=== PATIENT | female | born 1985 | race Caucasian/White ===

== ENCOUNTER 2016-10-29 08:51 | Emergency (ER) | payer MEDICAID ==
[~2016-10-29] VITALS: Ht 157.5 cm; Wt 145.0 kg
[~2016-10-29 08:51] MED LIST: AUGM875T PO; CIPR500T4 PO; CORTIS10A RIGHT EAR; ZITH250T PO
[2016-10-29 08:52] VITALS: BP 164/120; PULSE 108; RESP 21; TEMP 98; O2SAT 95
--- NOTE | 2016-10-29 10:12 | PD ---
HPI Chief Complaint: Respiratory Distress Time Seen by Provider: 09:41 Travel History International Travel<30 days: No Contact w/Intl Traveler<30days: No Traveled to known affect area: No History of Present Illness HPI This is a 31-year-old female who has a history of asthma who presents to the emergency department with 2 days of productive cough with green sputum, constant , severe, associated with difficulty breathing and chest tightness that goes around her ribs and is worse when she coughs. She also says she had several episodes of posttussive vomiting last night with a little bit of blood in it. She doesn't think she's had a fever. PFSH Past Medical History Asthma: Yes Diminished Hearing: No Respiratory: Yes ?: Not : 1 Para: 0 Miscarriage: 0 : 1 Dilation and Curettage (D&C): Yes Past Surgical History Cholecystectomy: Yes Social History Alcohol Use: No Tobacco Use: No Substance Use: No Allergies-Medications (Allergen,Severity, Reaction): Coded Allergies: Contrast Media (Verified Allergy, Severe, 10/29/16) Reported Meds & Prescriptions Reported Meds & Active Scripts Active No Active Prescriptions or Reported Medications Review of Systems Except as stated in HPI: all other systems reviewed are Neg Physical Exam Narrative GENERAL: Tearful, in no respiratory distress SKIN: Warm and dry. HEAD: Atraumatic. Normocephalic. EYES: Pupils equal and round. No injection or drainage. ENT: Moist mucous membranes NECK: Trachea midline. CARDIOVASCULAR: Tachycardic No murmur appreciated. RESPIRATORY: Diffuse wheezing, speaking full sentences, no accessory muscle use GASTROINTESTINAL: Abdomen soft, non-tender, nondistended. MUSCULOSKELETAL: No obvious deformities. NEUROLOGICAL: Awake and alert. No obvious cranial nerve deficits. Moving all extremities. PSYCHIATRIC: Tearful with depressed mood Data Data Last Documented VS Vital Signs Date Time Temp Pulse Resp B/P Pulse Ox O2 Delivery O2 Flow Rate FiO2 10/29/16 08:52 98.0 108 21 164/120 95 Orders Methylprednisolone So Succ Inj (Solumedr (10/29/16 10:15) Ecg Monitoring (10/29/16 10:07) Oximetry (10/29/16 10:07) Oxygen Administration (10/29/16 10:07) Albuterol-Ipratropium Neb (Duoneb Neb) (10/29/16 10:15) Sodium Chloride 0.9% Flush (Ns Flush) (10/29/16 10:15) Acetamin-Hydrocod 325-5 Mg ([place] 5-325 (10/29/16 10:15) [facility] Medical Decision Making Medical Screen Exam Complete: Yes Emergency Medical Condition: Yes Interpretation(s) Tachycardic with a normal oxygen saturation Differential Diagnosis Acute asthma exacerbation, pneumonia, bronchitis Narrative Course This is a 31-year-old female who presents to the emergency department with increasing shortness of breath. She has a history of asthma. She was given serial DuoNeb's and IM Solu-Medrol. She feels much better. Chest x-ray was deferred given she's not hypoxic and I'm going to treat her with antibiotics anyway given her purulent sputum production. Patient was discharged home with prednisone, bronchodilators and antibiotics. Diagnosis Primary Impression: Bronchitis, asthmatic Qualified Code: J45.41 - Bronchitis, asthmatic, moderate persistent, with acute exacerbation Patient Instructions: General Instructions Additional Instructions: If you develop severe shortness of breath, chest pain, or difficulty breathing return to the emergency department. Use albuterol every 4 hours for the next 2 days. Then use as needed for wheezing. Complete your course of steroids. Complete your course of antibiotics. Follow up with your primary care physician in 2-3 days if your symptoms have not improved. Med/Other Pt SpecificInfo: Prescription(s) given Scripts Albuterol 8.5 GM Inh (Proair Hfa 8.5 GM Inh)90 Mcg/Act Aer2 Puff INH Q4-6H PRN ( SHORTNESS OF BREATH) #1 INHALER Ref 0 108 mcg/actuation Prov:Eden Mercado MD 10/29/16 Albuterol Neb 2.5 Mg/0.5 Ml Neb2.5 Mg NEB QID NEB #120 NEBULE Ref 0 Note: The Albuterol Sulfate Inhalation Solution is concentrated and must be diluted. Read complete instructions carefully before using. Prov:Eden Mercado MD 10/29/16 Azithromycin 250 Mg Ait699 Mg PO DIRECTED #6 TAB Take 2 tabs (500 mg) on day 1 then 1 tab daily x 4 days. Prov:Eden Mercado MD 10/29/16 Prednisone 20 Mg Tab40 Mg PO DAILY 4 Days Prov:Eden Mercado MD 10/29/16 Disposition: 01 DISCHARGE HOME Condition: Stable Eden Mercado MD Oct 29, 2016 10:12
[2016-10-29] MEDS ORDERED: methylPREDNISolone SOD SUCC 125 MG/2 ML VIAL IM ONE (10:15)
[2016-10-29] MEDS ORDERED: ACETAMINOPHEN/HYDROcodone 325 MG/5 MG TAB PO ONE (10:15)
[2016-10-29] MEDS ORDERED: SODIUM CHLORIDE 0.9% FLUSH 10 ML FLUSH IVF PRN (10:15)
[2016-10-29] MEDS: RESP: ALBUTEROL 2.5 MG/IPRATROPIUM 0.5 MG NEB (SCH) INH ×2 (10:43→10:44)
[2016-10-29] MEDS ORDERED: ALBU.5I NEB (11:03)
[2016-10-29] MEDS ORDERED: PRED20 PO (11:03)
[2016-10-29] MEDS ORDERED: ALBUAER3 INH (11:03)
[2016-10-29] MEDS ORDERED: AZIT250T3 PO (11:03)
== END 2016-10-29 11:41 | disposition home or self-care (01) ==
LOC: NEPB 08:51
DX: J45.41 Moderate persistent asthma with (acute) exacerbation (principal)
CPT/HCPCS: 94664; 96372; 99283; J2930

== ENCOUNTER 2017-11-19 07:42 | Emergency (ER) | payer SELFPAY ==
[~2017-11-19] VITALS: Ht 162.6 cm; Wt 150.0 kg
[~2017-11-19 07:42] MED LIST changes: +ALBU.5I NEB; +ALBUAER3 INH; -AUGM875T PO; +AZIT250T3 PO; -CIPR500T4 PO; -CORTIS10A RIGHT EAR; +PRED20 PO; -ZITH250T PO
[2017-11-19 07:45] VITALS: BP 131/102; PULSE 102; RESP 22; TEMP 99.2; O2SAT 98
[2017-11-19] MEDS ORDERED: RESP: ALBUTEROL 2.5 MG/IPRATROPIUM 0.5 MG NEB (SCH) INH ONE (08:15)
[2017-11-19] MEDS ORDERED: SODIUM CHLORIDE 0.9% FLUSH 10 ML FLUSH IVF PRN (08:15)
[2017-11-19] MEDS ORDERED: KETOROLAC TROMETHAMINE 30 MG/ML (IVP) VIAL IV PUSH ONE (08:15)
[2017-11-19 08:19] LABS: AUTOMATED NEUTROPHIL # 5.3 TH/MM3 (1.8-7.7); BASOPHIL # 0.1 TH/MM3 (0-0.2); BASOPHIL % 0.8 % (0.0-2.0); EOSINOPHIL # 0.1 TH/MM3 (0-0.4); EOSINOPHIL % 1.2 % (0.0-4.0); HEMATOCRIT 39.1 % (35.0-46.0); HEMOGLOBIN 13.3 GM/DL (11.6-15.3); LYMPH % 33.9 % (9.0-44.0); LYMPHOCYTE # 3.2 TH/MM3 (1.0-4.8); MEAN CELL VOLUME 85.4 FL (80.0-100.0); MEAN CORPUSCULAR HEMOGLOBIN 29.1 PG (27.0-34.0); MEAN CORPUSCULAR HGB CONC 34.1 % (32.0-36.0); MEAN PLATELET VOLUME 8.2 FL (7.0-11.0); MONO % 7.4 % (0.0-8.0); MONOCYTE # 0.7 TH/MM3 (0-0.9); NEUT % 56.7 % (16.0-70.0); PLATELET COUNT 293 TH/MM3 (150-450); RED BLOOD COUNT 4.58 MIL/MM3 (4.00-5.30); RED CELL DISTRIBUTION WIDTH 13.6 % (11.6-17.2); WHITE BLOOD COUNT 9.4 TH/MM3 (4.0-11.0)
--- NOTE | 2017-11-19 08:22 | PD ---
HPI Chief Complaint: Cold / Flu Symptoms Time Seen by Provider: 08:01 Travel History International Travel<30 days: No Contact w/Intl Traveler<30days: No Traveled to known affect area: No History of Present Illness HPI This is a 32-year-old female with history of bronchitis/COPD, presents here with complaint of cough with productive green phlegm. Patient also reports subjective fevers. Patient reports pain in her left upper ribs. She reports the pain is sharp and intermittent. She reports it is present only when she moves from side to side or takes a deep breath in or out. She denies any constant pressure. She denies any radiation of the pain. The patient reports that her at home is starting to get similar URI symptoms. She reports this is been present for 4 days. The patient denies any calf swelling. She denies any long car rides or plane rides. She denies any control or estrogen use. She denies any previous trauma or previous blood clots to her legs. PFSH Past Medical History Asthma: Yes Diminished Hearing: No Respiratory: Yes ?: Not LMP: OCTOBER 2017 : 4 Para: 3 Miscarriage: 1 : 0 Dilation and Curettage (D&C): Yes Past Surgical History Cholecystectomy: Yes Social History Alcohol Use: No Tobacco Use: No Substance Use: No Allergies-Medications (Allergen,Severity, Reaction): Coded Allergies: diatrizoate meglumine (Unverified Allergy, Severe, 03/23/17) gadobenic acid (Unverified Allergy, Severe, 03/23/17) gadodiamide (Unverified Allergy, Severe, 03/23/17) gadoteridol (Unverified Allergy, Severe, 03/23/17) iodixanol (Unverified Allergy, Severe, 03/23/17) iohexol (Unverified Allergy, Severe, 03/23/17) Reported Meds & Prescriptions Reported Meds & Active Scripts Active Zithromax Z-Jerman (Azithromycin) 250 Mg Dspk 250 Mg PO DIRECTED 500 MG (2 tabs) day 1, then 1 tab days 2-5. Guaiatussin AC Liq (Guaifenesin-Codeine Liq) 100-10 Mg/5 Ml Syrp 10 Ml PO Q6H PRN 3 Days Review of Systems Except as stated in HPI: all other systems reviewed are Neg General / Constitutional: Positive: Fever, No: Chills HENT: No: Headaches, Lightheadedness, Neck Pain Cardiovascular: Positive: Chest Pain or Discomfort (Left upper lateral chest wall), No: Palpitations Respiratory: Positive: Cough, Shortness of Breath, Wheezing Gastrointestinal: Positive: Nausea, No: Vomiting, Abdominal Pain Genitourinary: No: Frequency, Dysuria Musculoskeletal: Positive: Pain (Left upper chest wall/behind her shoulder), No : Weakness, Edema Neurologic: No: Weakness, Dizziness, Headache Physical Exam Narrative GENERAL: Well-developed well-nourished female in no acute respiratory distress. SKIN: Focused skin assessment warm/dry. HEAD: Atraumatic. Normocephalic. EYES: No scleral icterus. No injection or drainage. ENT: No nasal bleeding or discharge. Mucous membranes pink and moist. NECK: Trachea midline. No JVD. CARDIOVASCULAR: Heart rate at 100 bpm. No murmur appreciated. RESPIRATORY: Decreased breath sounds at the bilateral bases. No rales appreciated. Fine wheezes heard at the mid lung lemons bilaterally. GASTROINTESTINAL: Abdomen soft, non-tender, nondistended. MUSCULOSKELETAL: No obvious deformities. No clubbing. No cyanosis. No edema. No calf tenderness or palpable cords behind her knees. NEUROLOGICAL: Awake and alert. No obvious cranial nerve deficits. Motor grossly within normal limits. Normal speech. Data Data Last Documented VS Vital Signs Date Time Temp Pulse Resp B/P (MAP) Pulse Ox O2 Delivery O2 Flow Rate FiO2 11/19/17 08:30 98 Room Air 11/19/17 07:52 96 11/19/17 07:45 99.2 22 131/102 (112) Orders Orders Complete Blood Count With Diff (11/19/17 08:01) Comprehensive Metabolic Panel (11/19/17 08:01) Ckmb (Isoenzyme) Profile (11/19/17 08:01) Troponin I (11/19/17 08:01) Influenzae A/B Antigen (11/19/17 08:01) Iv Access Insert/Monitor (11/19/17 08:01) Ecg Monitoring (11/19/17 08:01) Oximetry (11/19/17 08:01) Oxygen Administration (11/19/17 08:01) Chest, Single Ap (11/19/17 08:01) Sodium Chloride 0.9% Flush (Ns Flush) (11/19/17 08:15) Albuterol-Ipratropium Neb (Duoneb Neb) (11/19/17 08:15) Albuterol Neb (Albuterol Neb) (11/19/17 08:15) Ketorolac Inj (Toradol Inj) (11/19/17 08:15) D-Dimer (11/19/17 08:06) Ventilation & Perfusion Scan (11/19/17 ) Morphine Inj (Morphine Inj) (11/19/17 11:15) Electrocardiogram (11/19/17 07:53) Labs Laboratory Tests Test 11/19/17 08:00 White Blood Count 9.4 TH/MM3 Red Blood Count 4.58 MIL/MM3 Hemoglobin 13.3 GM/DL Hematocrit 39.1 % Mean Corpuscular Volume 85.4 FL Mean Corpuscular Hemoglobin 29.1 PG Mean Corpuscular Hemoglobin Concent 34.1 % Red Cell Distribution Width 13.6 % Platelet Count 293 TH/MM3 Mean Platelet Volume 8.2 FL Neutrophils (%) (Auto) 56.7 % Lymphocytes (%) (Auto) 33.9 % Monocytes (%) (Auto) 7.4 % Eosinophils (%) (Auto) 1.2 % Basophils (%) (Auto) 0.8 % Neutrophils # (Auto) 5.3 TH/MM3 Lymphocytes # (Auto) 3.2 TH/MM3 Monocytes # (Auto) 0.7 TH/MM3 Eosinophils # (Auto) 0.1 TH/MM3 Basophils # (Auto) 0.1 TH/MM3 CBC Comment DIFF FINAL Differential Comment D-Dimer Quantitative (PE/DVT) 0.56 MG/L FEU Blood Urea Nitrogen 8 MG/DL Creatinine 0.73 MG/DL Random Glucose 137 MG/DL Total Protein 7.9 GM/DL Albumin 3.5 GM/DL Calcium Level 8.7 MG/DL Alkaline Phosphatase 80 U/L Aspartate Amino Transf (AST/SGOT) 38 U/L Alanine Aminotransferase (ALT/SGPT) 62 U/L Total Bilirubin 0.7 MG/DL Sodium Level 139 MEQ/L Potassium Level 3.9 MEQ/L Chloride Level 107 MEQ/L Carbon Dioxide Level 25.9 MEQ/L Anion Gap 6 MEQ/L Estimat Glomerular Filtration Rate 91 ML/MIN Total Creatine Kinase 87 U/L Troponin I LESS THAN 0.02 NG/ML MDM Medical Decision Making Medical Screen Exam Complete: Yes Emergency Medical Condition: Yes Differential Diagnosis Bronchitis versus pneumonia versus pulmonary embolism Narrative Course 32-year-old female with history of asthma/COPD, presents today with bites of shortness of breath and cough. Patient has no obvious large infiltrate. D- dimer was elevated and the patient is allergic to IV contrast dye. She had a VQ scan that showed questionable early infiltrate in the right base. No evidence of pulmonary embolus the patient has been given breathing treatments. She has also also been given Toradol and morphine. She will be discharged with a prescription for azithromycin Z-Jerman. She also be given a prescription for cough syrup with codeine. She will be instructed to follow-up with her primary care physician. Diagnosis Primary Impression: Bronchitis versus early pneumonia Additional Instructions: Do not drive or drink alcohol while taking cough medicine. Return if feeling worse. Med/Other Pt SpecificInfo: Prescription(s) given Scripts Azithromycin (Zithromax Z-Jerman) 250 Mg Dspk 250 MG PO DIRECTED for Infection, #1 DSPK 0 Refills 500 MG (2 tabs) day 1, then 1 tab days 2-5. Prov: Yoseph Nichols MD 11/19/17 Guaifenesin-Codeine Liq (Guaiatussin AC Liq) 100-10 Mg/5 Ml Syrp 10 ML PO Q6H Y for COUGH for 3 Days, #120 ML Prov: Yoseph Nichols MD 11/19/17 Disposition: 01 DISCHARGE HOME Condition: Stable Yoseph Nichols MD Nov 19, 2017 08:22
[2017-11-19] MEDS: RESP: ALBUTEROL 2.5 MG/3 ML NEB (SCH) INH ×2 (08:29→08:30)
[2017-11-19 08:30] VITALS: O2SAT 98
[2017-11-19 08:39] LABS: ALBUMIN 3.5 GM/DL (3.4-5.0); ALT (GPT) 62 U/L (10-53); BICARBONATE 25.9 MEQ/L (21.0-32.0); BLOOD UREA NITROGEN 8 MG/DL (7-18); CALCIUM 8.7 MG/DL (8.5-10.1); CHLORIDE 107 MEQ/L (98-107); GLUCOSE,RANDOM 137 MG/DL (74-106); SODIUM (NA) 139 MEQ/L (136-145)
[2017-11-19 08:43] LABS: ALKALINE PHOSPHATASE 80 U/L (45-117); AST (GOT) 38 U/L (15-37); CREATININE 0.73 MG/DL (0.50-1.00); GLOMERULAR FILTRATION RATE 91 ML/MIN (>89); TOTAL BILIRUBIN ADULT 0.7 MG/DL (0.2-1.0); TOTAL PROTEIN 7.9 GM/DL (6.4-8.2); TROPONIN I LESS THAN 0.02 NG/ML (0.02-0.05)
--- NOTE | 2017-11-19 08:53 | RADRPT ---
EXAM DATE/TIME: 11/19/2017 08:09 [facility] COMPARISON: No previous studies available for comparison. INDICATIONS : Pt states she has been coughing for 5 days and for the past 2 days, pain in left side of her chest. P t states pain is a 2/10 when not moving around and a 9/10 when coughing or with activity. MEDICAL HISTORY : None. SURGICAL HISTORY : None. ENCOUNTER: Initial ACUITY: 4 - 6 days PAIN SCORE: 5/10 LOCATION: Left chest FINDINGS: A single view of the chest demonstrates the lungs to be symmetrically aerated without evidence of mas s, infiltrate or effusion. The cardiomediastinal contours are unremarkable. Osseous structures are intact. CONCLUSION: No acute disease. Pasha Peters MD FACR on November 19, 2017 at 8:49 Board Certified Radiologist. This report was verified electronically.
[2017-11-19] MEDS ORDERED: MORPHINE SULFATE 8 MG/ML INJ IV PUSH ONE (11:15)
--- NOTE | 2017-11-19 13:59 | RADRPT ---
EXAM DATE/TIME: 11/19/2017 12:33 [facility] COMPARISON: CHEST SINGLE AP, November 19, 2017, 8:09. INDICATIONS : Short of breath and left sided chest pain for 1 day. DOSE: 8.5 mCi Tc99m MAA IV 1.7 mCi Tc99m DTPA aerosol MEDICAL HISTORY : Asthma. SURGICAL HISTORY : Cholecystectomy. ENCOUNTER: Initial ACUITY: 1 day PAIN SCALE: 5/10 LOCATION: Left chest TECHNIQUE: Following five minutes of tidal breathing of DTPA aerosol, planar images of the lungs were performed in eight projections. The patient was then injected with MAA, and eight-view perfusion scan was perf ormed. FINDINGS: There is a homogeneous pattern of aerosol delivery to the periphery of both lungs. Some diminished ac tivity in the right base is identical to the perfusion images and appears to be due to the slightly e levated right hemidiaphragm. The perfusion lung scan demonstrates a homogenous pattern of uptake in both lungs. Next decreased act ivity in the right base is likely due to the elevated right hemidiaphragm. CONCLUSION: 1. Slight elevation of right hemidiaphragm with regional diminished activity on the ventilation and p erfusion images. 2. Otherwise negative. No scintigraphic findings of pulmonary embolus. Alejandro Barragan MD on November 19, 2017 at 13:54 Board Certified Radiologist. This report was verified electronically.
[2017-11-19] MEDS ORDERED: GUAISYP5 PO (15:05)
[2017-11-19] MEDS ORDERED: ZITHTAB PO (15:05)
--- NOTE | 2017-11-19 19:33 | EKG ---
Date Performed: 11/19/2017 Time Performed: 07:53:55 PTAGE: 32 years EKG: SINUS TACHYCARDIA ABNORMAL RHYTHM ECG NO PREVIOUS TRACING DOCTOR: Kendall Combs Interpretating Date/Time 11/19/2017 19:30:01
== END 2017-11-19 16:06 | disposition home or self-care (01) ==
LOC: NEPC 07:42
DX: J40 Bronchitis, not specified as acute or chronic (principal); R07.89 Other chest pain; R06.02 Shortness of breath; R94.31 Abnormal electrocardiogram [ECG] [EKG]
CPT/HCPCS: 71045; 78582; 80053; 82550; 84484; 85025; 85379; 87804; 93005; 94640; 94664; 96374; 96375; 99285; A9540; A9567; J1885; J2270; J7613